=== PATIENT | female | born 1965 | race Caucasian/White ===

== ENCOUNTER 2020-09-12 11:47 | Emergency (ER) | payer OTHER ==
[~2020-09-12] VITALS: Ht 167.6 cm; Wt 113.6 kg
[~2020-09-12 11:47] MED LIST: CYCL-331 PO; HYDR-2155 PO; IBUP800T19 PO
[2020-09-12 11:53] VITALS: BP 110/73
--- NOTE | 2020-09-12 12:05 | PHYS DOC ---
Past History Past Medical History: No Pertinent History Past Surgical History: Alcohol Use: None Drug Use: None General Adult EDM: Chief Complaint: HAND PROBLEM HPI: HPI: 55-year-old female with atraumatic left hand pain and swelling since yesterday. So she was at work when she started to notice the pain. Denies any trauma or strain on her hand. She is right-handed. Denies any history of blood clots or bleeding problems, no medical problems or medications. Review of Systems: Review of Systems: Constitutional: Denies fever or chills Eyes: Denies change in visual acuity HENT: Denies nasal congestion or sore throat Respiratory: Denies cough or shortness of breath Cardiovascular: Denies chest pain or edema GI: Denies abdominal pain, nausea, vomiting, bloody stools or diarrhea : Denies dysuria Musculoskeletal: Denies back pain but has left hand pain and swelling Integument: Denies rash Neurologic: Denies headache, focal weakness or sensory changes Endocrine: Denies polyuria or polydipsia Lymphatic: Denies swollen glands Psychiatric: Denies depression or anxiety Heart Score: Risk Factors: Risk Factors: DM, Current or recent (<one month) smoker, HTN, HLP, family history of CAD, obesity. Risk Scores: Score 0 - 3: 2.5% MACE over next 6 weeks - Discharge Home Score 4 - 6: 20.3% MACE over next 6 weeks - Admit for Clinical Observation Score 7 - 10: 72.7% MACE over next 6 weeks - Early Invasive Strategies Allergies: Allergies: Allergies Coded Allergies Type Severity Reaction Last Updated Verified No Known Drug Allergies 09/15/15 No Physical Exam: PE: Constitutional: Well developed, well nourished, no acute distress, non-toxic appearance. [] HENT: Normocephalic, atraumatic, bilateral external ears normal, oropharynx moist, no oral exudates, nose normal. [] Eyes: PERRLA, EOMI, conjunctiva normal, no discharge. [] Neck: Normal range of motion, no tenderness, supple, no stridor. [] Cardiovascular:Heart rate regular rhythm, no murmur [] Lungs & Thorax: Bilateral breath sounds clear to auscultation [] Abdomen: Bowel sounds normal, soft, no tenderness, no masses, no pulsatile masses. [] Skin: Warm, dry, no erythema, no rash. [] Back: No tenderness, no CVA tenderness. [] Extremities: No tenderness, no cyanosis, no clubbing, ROM intact, no edema. [] Left hand mild swelling around base of thumb, no deformities neurovascularly intact distal Neurologic: Alert and oriented X 3, normal motor function, normal sensory function, no focal deficits noted. [] Psychologic: Affect normal, judgement normal, mood normal. [] EKG: EKG: [] Radiology/Procedures: Radiology/Procedures: Three-view left hand radiographs 09/12/2020 CLINICAL HISTORY: Pain and swelling around the base of the left thumb. PA, lateral and oblique digital radiographs of the left hand were obtained. No fracture or dislocation of the left hand is seen. 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 These consist of joint compartment narrowing, subchondral sclerosis, osteophyte formation and subchondral cyst formation. Faint calcifications are seen within the soft tissues surrounding this joint. 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 No acute osseous abnormality is seen. [] Course & Med Decision Making: Course & Med Decision Making Pertinent Labs and Imaging studies reviewed. (See chart for details) No osseous abnormality other than degenerative disease. Faint bruising on hands as possible vascular trauma. Raj wrap placed with instructions for per [] Tyrell Disclaimer: Tyrell Disclaimer: This electronic medical record was generated, in whole or in part, using a voice recognition dictation system. Departure Departure: Impression: Primary Impression: Left hand pain Disposition: 01 DC HOME SELF CARE/HOMELESS Condition: STABLE Referrals: PEDRO RONDON DO (PCP) Patient Instructions: Elastic Bandage and TAMAR MORENO MD Sep 12, 2020 12:05
--- NOTE | 2020-09-12 12:26 | RAD ---
Three-view left hand radiographs 09/12/2020 CLINICAL HISTORY: Pain and swelling around the base of the left thumb. PA, lateral and oblique digital radiographs of the left hand were obtained. No fracture or dislocation of the left hand is seen. 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 These consist of joint compartment narrowing, subchondral sclerosis, osteophyte formation and subchondral cyst formation. Faint calcifications are seen within the soft tissues surrounding this joint. 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 No acute osseous abnormality is seen. Electronically signed by: Biju Payne MD (09/12/2020 12:23 PM) [id number]
== END 2020-09-12 12:44 | disposition home or self-care (01) ==
LOC: ER 11:47
DX: M79.642 Pain in left hand (principal); R22.32 Localized swelling, mass and lump, left upper limb
CPT/HCPCS: 73130; 99283